=== PATIENT | female | born 1980 | race Two or more races ===

== ENCOUNTER 2018-05-04 22:51 | Emergency (ER) | payer OTHER ==
[2018-05-04] MEDS ORDERED: diphenhydrAMINE 25 MG CAPSULE PO STA (23:14)
[2018-05-04] MEDS ORDERED: predniSONE 20 MG TABLET PO STA (23:14)
[2018-05-04] MEDS ORDERED: DOXYCYCLINE 100 MG TABLET PO STA (23:14)
--- NOTE | 2018-05-04 23:18 | ED Physician Documentation ---
History of Present Illness - Stated complaint Stated Complaint: LT HAND SWELL/BLISTER - Chief complaint Chief Complaint: Ext Problem - History obtained from History obtained from: Patient, Family - History of Present Illness Timing: Today, How many hours ago (4) Pain level max: 5 Pain level now: 1 Improved by: nothing Worsened by: nothing - Additonal information Additional information: 37-year-old female presents to the emergency department with swelling and pain to the lateral aspect of the left hand. Started approximately 4 hours ago and is grown in size. She states there was a small blister which popped. Most of the pain is with movement. Does not recall any injury. States it is painful and does not itch. She is right-handed. Review of Systems Ten Systems: 10 systems reviewed and negative Constitutional: denies: Fever, Chills Nose: denies: Rhinorrhea / runny nose, Congestion Cardiac: denies: Chest pain / pressure Respiratory: denies: Cough GI: denies: Abdominal Pain, Nausea, Vomiting, Diarrhea : denies: Now EGA Musculoskeletal: denies: Neck pain, Back pain Neurologic: denies: Headache PD PAST MEDICAL HISTORY - Past Medical History Past Medical History: Yes Psych: Anxiety, ADD/ADHD - Past Surgical History Past Surgical History: Yes - Present Medications Home Medications: Ambulatory Orders Medication Instructions Recorded Confirmed Venlafaxine [Effexor] 75 mg PO DAILY 04/15/14 04/15/14 Promethazine [Phenergan] 25 - 50 mg PO Q6H PRN #10 tab 12/09/15 raNITIdine [Zantac] 150 mg PO BID #30 tablet 12/09/15 Doxycycline Hyclate 100 mg PO BID #20 capsule 05/05/18 predniSONE [Prednisone] 40 mg PO DAILY #10 tablet 05/05/18 - Allergies Allergies/Adverse Reactions: Allergies Allergy/AdvReac Type Severity Reaction Status Date / Time sulfamethoxazole Allergy Intermediate Rash Verified 04/10/13 22:44 [From Bactrim] trimethoprim [From Bactrim] Allergy Intermediate Rash Verified 04/10/13 22:44 amoxicillin [Amoxicillin] Allergy Hives Verified 04/08/13 14:28 - Social History Does the pt smoke?: Yes Smoking Status: Current every day smoker Does the pt drink ETOH?: Yes Does the pt have substance abuse?: No - Immunizations Immunizations are current?: Yes - POLST Patient has POLST: No PD ED PE NORMAL - Vitals Vital signs reviewed: Yes - General General: Alert and oriented X 3, No acute distress - HEENT HEENT: Moist mucous membranes - Neck Neck: Supple, no meningeal sign - Cardiac Cardiac: RRR - Respiratory Respiratory: No respiratory distress, Clear bilaterally - Derm Derm: Warm and dry - Neuro Neuro: Alert and oriented X 3 - Psych Psych: Normal mood, Normal affect PD ED PE EXPANDED - Extremities PAPO UE/Hands Visual: 1 - rash (2x4cm area with slight erythema and cracking of skin, no crepitus. no lymphangitis) Results - Vitals Vitals: Vital Signs - 24 hr 05/04/18 05/05/18 23:01 00:21 Temperature 36.3 C L Heart Rate 89 74 Respiratory 18 17 Rate Blood Pressure 151/103 H 116/74 O2 Saturation 99 100 Oxygen O2 Source Room air PD MEDICAL DECISION MAKING - ED course Complexity details: re-evaluated patient, considered differential, d/w patient ED course: 37-year-old female with a left hand area of erythema, this appears mostly consistent with an allergic reaction, however will cover for possible cellulitis as well. Does not appear to be necrotizing fasciitis. No evidence of deep space infection in the hand. No pain with range of motion of the fingers. No pain along the tendon sheaths. She did improve with prednisone, doxycycline and Benadryl. Neurovascularly intact. We will continue this regimen at home and see how she progresses. Patient counseled regarding signs and symptoms for which I believe and urgent re-evaluation would be necessary. Patient with good understanding of and agreement to plan and is comfortable going home at this time This document was made in part using voice recognition software. While efforts are made to proofread this document, sound alike and grammatical errors may occur. Departure - Departure Disposition: 01 Home, Self Care Clinical Impression: Cellulitis Qualifiers: Site of cellulitis: extremity Site of cellulitis of extremity: upper extremity Laterality: left Qualified Code(s): L03.114 - Cellulitis of left upper limb Allergic reaction Qualifiers: Encounter type: initial encounter Qualified Code(s): T78.40XA - Allergy, unspecified, initial encounter Condition: Good Instructions: ED Infec Skin Cellulitis Follow-Up: Edilson Hill ARNP [Primary Care Provider] - Within 3 Days Prescriptions: Doxycycline Hyclate 100 mg PO BID #20 capsule predniSONE [Prednisone] 40 mg PO DAILY #10 tablet Comments: The cause of your symptoms is unclear today. This could be related to a bacterial infection or allergic reaction. Take the medications until gone. Return if you worsen
[2018-05-05 00:22] VITALS: BP 116/74
== END 2018-05-05 00:39 | disposition home or self-care (01) ==
LOC: ED 22:51
DX: L03.114 Cellulitis of left upper limb (principal); T78.40XA Allergy, unspecified, initial encounter; F17.200 Nicotine dependence, unspecified, uncomplicated
CPT/HCPCS: 99283; A9270; J7512

== ENCOUNTER 2018-05-18 13:15 | Emergency (ER) | payer OTHER ==
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
[2018-05-18] MEDS ORDERED: CYCLOBENZAPRINE 10 MG TABLET PO STA (14:12)
[2018-05-18] MEDS ORDERED: HYDROcod/ACETAM 5/325 MG TABLET PO STA (14:12)
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
[2018-05-18 15:05] VITALS: BP 124/90
== END 2018-05-18 15:04 | disposition home or self-care (01) ==
LOC: ED 13:15
DX: S39.012A Strain of muscle, fascia and tendon of lower back, initial encounter (principal); S50.02XA Contusion of left elbow, initial encounter; V49.9XXA Car occupant (driver) (passenger) injured in unspecified traffic accident, initial encounter; Y93.84 Activity, sleeping; M54.2 Cervicalgia; R03.0 Elevated blood-pressure reading, without diagnosis of hypertension; F17.200 Nicotine dependence, unspecified, uncomplicated
CPT/HCPCS: 73080; 99283; A9270

== ENCOUNTER 2018-06-28 11:51 | Emergency (ER) | payer OTHER ==
[2018-06-28] MEDS ORDERED: SODIUM CHLORIDE 0.9% 1,000 ML IV ONE (13:55)
[2018-06-28] MEDS ORDERED: HYOSCYAMINE SL 0.125 MG TABLET SL STA (13:55)
[2018-06-28] MEDS ORDERED: ONDANSETRON 4 MG/2 ML VIAL IVP STA (13:55)
--- NOTE | 2018-06-28 13:56 | ED Physician Documentation ---
History of Present Illness - Stated complaint Stated Complaint: N/V STOMACH PX/BACK PX - Chief complaint Chief Complaint: Abd Pain - History obtained from History obtained from: Patient, Family - History of Present Illness Timing: Yesterday Pain level max: 8 Pain level now: 8 - Additonal information Additional information: 38-year-old female presents to the emergency department with nausea, vomiting, diarrhea. Ongoing for the past 24 hours or so. Having abdominal cramping as well. Unable to tolerate p.o. She is being weaned off Effexor and Vyvanse. No fevers. No bad food or recent travel.Nothing makes it better. Worse with eating and drinking Review of Systems Ten Systems: 10 systems reviewed and negative Constitutional: denies: Fever, Chills Ears: denies: Ear pain Nose: denies: Rhinorrhea / runny nose, Congestion Throat: denies: Sore throat Cardiac: denies: Chest pain / pressure Respiratory: denies: Cough GI: reports: Abdominal Pain (Cramping, especially epigastric), Nausea, Vomiting, Diarrhea : denies: Dysuria, Frequency, Hesitancy, Now EGA Skin: denies: Rash Musculoskeletal: denies: Neck pain, Back pain Neurologic: denies: Headache PD PAST MEDICAL HISTORY - Past Medical History Cardiovascular: None Respiratory: None Neuro: None Endocrine/Autoimmune: None GI: 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 : None HEENT: None Psych: Anxiety, ADD/ADHD Musculoskeletal: None Derm: None - Past Surgical History Past Surgical History: Yes - Present Medications Home Medications: Ambulatory Orders Medication Instructions Recorded Confirmed Venlafaxine [Effexor] 75 mg PO DAILY 04/15/14 05/18/18 Cyclobenzaprine [Flexeril] 10 mg PO TID PRN #20 tablet 05/18/18 Hydrocodone/Acetaminophen 1 - 2 each PO Q6H PRN #14 tablet 05/18/18 [Hydrocodon-Acetaminophen 5-325] Lisdexamfetamine Dimesylate 30 mg PO DAILY 05/18/18 05/18/18 [Vyvanse] Hyoscyamine Sulfate [Levsin-Sl] 0.125 mg SL Q6H PRN #10 tab.subl 06/28/18 Ondansetron Odt [Zofran] 4 mg TL Q6H PRN #10 tablet 06/28/18 - Allergies Allergies/Adverse Reactions: Allergies Allergy/AdvReac Type Severity Reaction Status Date / Time sulfamethoxazole Allergy Intermediate Rash Verified 06/28/18 12:19 [From Bactrim] trimethoprim [From Bactrim] Allergy Intermediate Rash Verified 06/28/18 12:19 amoxicillin [Amoxicillin] Allergy Hives Verified 06/28/18 12:19 - Living Situation Living Situation: reports: With family Living Arrangement: reports: At home - Social History Does the pt smoke?: Yes Smoking Status: Current every day smoker Does the pt drink ETOH?: Yes Does the pt have substance abuse?: Yes Substance Use and Type: Marijuana (2-3 times per month) - Family History Family history: reports: Non contributory - Immunizations Immunizations are current?: Yes - POLST Patient has POLST: No PD ED PE NORMAL - Vitals Vital signs reviewed: Yes - General General: Alert and oriented X 3, No acute distress - HEENT HEENT: Moist mucous membranes - Neck Neck: Supple, no meningeal sign - Cardiac Cardiac: RRR, Strong equal pulses - Respiratory Respiratory: No respiratory distress, Clear bilaterally - Abdomen Abdomen: Soft, Non tender, Non distended - Back Back: No CVA TTP - Derm Derm: Warm and dry, No rash - Extremities Extremities: No edema - Neuro Neuro: Alert and oriented X 3 Results - Vitals Vitals: Vital Signs - 24 hr 06/28/18 06/28/18 06/28/18 12:17 14:20 14:24 Temperature 37.1 C 37.3 C Heart Rate 96 79 79 Respiratory 14 20 14 Rate Blood Pressure 129/82 H 122/80 122/80 O2 Saturation 97 100 99 Oxygen O2 Source Room air - Labs Labs: Laboratory Tests 06/28/18 06/28/18 14:00 14:00 WBC 6.7 RBC 4.18 L Hgb 11.5 L Hct 34.7 L MCV 82.9 MCH 27.5 MCHC 33.2 RDW 14.9 Plt Count 213 MPV 8.8 Neut # (Auto) 5.4 Lymph # (Auto) 0.8 L [place] # (Auto) 0.6 Eos # (Auto) 0.0 Baso # (Auto) 0.0 Absolute Nucleated RBC 0.00 Nucleated RBC % 0.0 Sodium 133 L Potassium 3.5 Chloride 104 Carbon Dioxide 23 Anion Gap 6.0 BUN 7 Creatinine 0.4 Estimated GFR (MDRD) 178 Glucose 98 Calcium 8.4 L Total Bilirubin 0.5 AST 20 ALT 12 Alkaline Phosphatase 61 Total Protein 7.0 Albumin 3.8 Globulin 3.2 Albumin/Globulin Ratio 1.2 Lipase 26 PD MEDICAL DECISION MAKING - ED course Complexity details: reviewed results, re-evaluated patient, considered differential, d/w patient, d/w family ED course: 38-year-old female presents to the emergency department with what appears to be a viral gastroenteritis. She feels better after IV fluids, Levsin and Zofran. Tolerating p.o. without difficulty. We will continue supportive care and follow-up with her doctor. Abdomen is soft, nontender nondistended on serial exam. Patient counseled regarding signs and symptoms for which I believe and urgent re-evaluation would be necessary. Patient with good understanding of and agreement to plan and is comfortable going home at this time This document was made in part using voice recognition software. While efforts are made to proofread this document, sound alike and grammatical errors may occur. Departure - Departure Disposition: 01 Home, Self Care Clinical Impression: Gastroenteritis Condition: Good Instructions: ED Gastroenteritis Viral Follow-Up: Edilson Hill ARNP [Primary Care Provider] - Within 1 week Prescriptions: Hyoscyamine Sulfate [Levsin-Sl] 0.125 mg SL Q6H PRN #10 tab.subl PRN Reason: cramping Ondansetron Odt [Zofran] 4 mg TL Q6H PRN #10 tablet PRN Reason: Nausea / Vomiting Comments: Take the medications as needed. Return if you worsen. Follow-up with your doctor for further evaluation and care. Forms: Activity restrictions Discharge Date/Time: 06/28/18 15:50
[2018-06-28 14:09] LABS: BASOPHILS % (AUTO) 0.2 %; EOSINOPHILS % (AUTO) 0.1 %; HGB - HEMOGLOBIN 11.5 g/dL (12.0-16.0); LYMPHOCYTES # (AUTO) 0.8 10^3/uL (1.5-3.5); LYMPHOCYTES % (AUTO) 11.5 %; MEAN CORPUSCULAR HEMOGLOBIN 27.5 pg (27.0-31.0); MEAN CORPUSCULAR HGB CONC 33.2 g/dL (32.0-36.0); MEAN CORPUSCULAR VOLUME 82.9 fL (81.0-99.0); MEAN PLATELET VOLUME 8.8 fL (7.9-10.8); MONOCYTES # (AUTO) 0.6 10^3/uL (0.0-1.0); MONOCYTES % (AUTO) 8.2 %; NEUTROPHILS # (AUTO) 5.4 10^3/uL (1.5-6.6); PLT - PLATELET COUNT 213 10^3/uL (130-450); RED BLOOD COUNT 4.18 10^6/uL (4.20-5.40); RED CELL DISTRIBUTION WIDTH 14.9 % (12.0-15.0); WHITE BLOOD COUNT 6.7 x10^3/uL (4.8-10.8)
[2018-06-28 14:21] VITALS: BP 122/80
[2018-06-28 14:23] LABS: ALBUMIN 3.8 g/dL (3.2-5.5); ALBUMIN/GLOBULIN RATIO 1.2 (1.0-2.2); BILIRUBIN,TOTAL 0.5 mg/dL (0.2-1.0); CALCIUM 8.4 mg/dL (8.5-10.3); CREATININE 0.4 mg/dL (0.4-1.0)
== END 2018-06-28 15:50 | disposition home or self-care (01) ==
LOC: ED 11:51
DX: K52.9 Noninfective gastroenteritis and colitis, unspecified (principal); F17.200 Nicotine dependence, unspecified, uncomplicated
CPT/HCPCS: 36415; 80053; 83690; 85025; 96361; 96374; 99283; A9270

== ENCOUNTER 2018-10-02 20:25 | Emergency (ER) | payer OTHER ==
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
[2018-10-02] MEDS ORDERED: IBUPROFEN 800 MG TABLET PO STA (21:01)
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
[2018-10-02 22:46] VITALS: BP 142/82
== END 2018-10-02 22:44 | disposition home or self-care (01) ==
LOC: ED 20:25
DX: S90.31XA Contusion of right foot, initial encounter (principal); S20.312A Abrasion of left front wall of thorax, initial encounter; V43.54XA Car driver injured in collision with van in traffic accident, initial encounter; Y92.410 Unspecified street and highway as the place of occurrence of the external cause; F17.200 Nicotine dependence, unspecified, uncomplicated
CPT/HCPCS: 71101; 73630; 93005; 99283; A9270

== ENCOUNTER 2018-10-23 07:59 | Day surgery (SDC) | payer OTHER ==
[2018-10-23] MEDS ORDERED: BUPIVACAINE 0.25% PF 10 ML VIAL ONE (08:26)
[2018-10-23] MEDS ORDERED: LACTATED RINGERS 1,000 ML IV ONE (08:35)
[2018-10-23] MEDS ORDERED: CEFAZOLIN SODIUM IN 0.9 % NACL 2 GM/100 ML BAG IV ONE (08:41)
[2018-10-23 08:48] LABS: HCG UR QUAL NEGATIVE
--- NOTE | 2018-10-23 08:49 | ANESTHESIA ---
Pre-Anesthesia VS, & Labs - Diagnosis Left wrist carpal tunnel syndrome - Procedure Left wrist carpal tunnel release Vital Signs: Temp Pulse Resp BP Pulse Ox 36.7 C 72 16 130/90 H 100 10/23/18 08:00 10/23/18 08:00 10/23/18 08:00 10/23/18 08:00 10/23/18 08:00 Height 5 ft 3 in Weight (kg) 74.1 kg Body Mass Index 28.3 - NPO >8 hours - Is Patient ?: No Home Medications and Allergies Home Medications: Ambulatory Orders Levothyroxine Sodium [Synthroid] 50 mcg PO 10/21/18 Venlafaxine [Effexor] 75 mg PO DAILY 04/15/14 Lisdexamfetamine Dimesylate [Vyvanse] 30 mg PO DAILY 05/18/18 Levothyroxine Sodium [Synthroid] 50 mcg PO 10/21/18 Allergies/Adverse Reactions: Allergies Allergy/AdvReac Type Severity Reaction Status Date / Time sulfamethoxazole Allergy Intermediate Rash Verified 10/21/18 14:23 [From Bactrim] trimethoprim [From Bactrim] Allergy Intermediate Rash Verified 10/02/18 20:33 amoxicillin [Amoxicillin] Allergy Hives Verified 10/02/18 20:33 Anes History & Medical History - Anesthetic History Anesthesia Complications: reports: No previous complications - Medical History Cardiovascular: reports: Hypertension Pulmonary: reports: None Gastrointestinal: reports: None Urinary: reports: None Neuro: reports: None Musculoskeletal: reports: None Endocrine/Autoimmune: reports: HyPOthyroidism Blood Disorders: reports: None Skin: reports: None Smoking Status: Current every day smoker (1/2 pack per day for 20 years) Psychosocial: reports: Anxiety, Cannabis (2x per month) - Surgical History Gynecologic: Breast implants Exam General: Alert, Oriented x3, Cooperative, No acute distress Dental: WNL Mouth Openin Fingerbreadth Neck Mobility: Normal Mallampati classification: I Thyromental Distance: greater than 6 cm Respiratory: Lungs clear, Normal breath sounds, No respiratory distress, No accessory muscle use Cardiovascular: Regular rate, Normal S1, Normal S2, No murmurs Mental/Cognitive Status: Alert/Oriented X3, Normal for patient Plan Anesthesia Type: General Consent for Procedure(s) Verified and Reviewed: Yes Code Status: Attempt Resuscitation ASA classification: 2-Mild systemic disease Is this case an emergency?: No
[2018-10-23] MEDS ORDERED: BUPIVACAINE 0.25% PF 30 ML VIAL SUBQ ONE ×2 (09:37→09:48)
[2018-10-23] MEDS ORDERED: LIDOCAINE-MPF 2% 5 ML VIAL IM ONE (09:42)
[2018-10-23] MEDS ORDERED: KETOROLAC 30 MG/ML VIAL IVP ONE (09:42)
[2018-10-23] MEDS ORDERED: DEXAMETHASONE 4 MG/ML VIAL IVP ONE (09:42)
[2018-10-23] MEDS ORDERED: HYDROmorphone 1 MG/ML SYRINGE IM ONE (09:42)
[2018-10-23] MEDS ORDERED: fentaNYL 100 MCG/2 ML VIAL IVP ONE (09:42)
[2018-10-23] MEDS ORDERED: PROPOFOL 200 MG/20 ML VIAL IVP ONE (09:42)
[2018-10-23] MEDS ORDERED: MIDAZOLAM 2 MG/2 ML VIAL IVP ONE (09:42)
[2018-10-23] MEDS ORDERED: ONDANSETRON 4 MG/2 ML VIAL IVP ONE (09:42)
[2018-10-23] MEDS ORDERED: oxyCODONE 5 MG TABLET PO PRN (10:02)
[2018-10-23] MEDS ORDERED: ONDANSETRON 4 MG/2 ML VIAL IVP PRN (10:02)
--- NOTE | 2018-10-23 10:05 | OPERATIVE REPORT ---
Operative Report - Other Other Information/Narrative: Date of Surgery: 23 October 2018 Pre-Op Diagnosis: Left carpal tunnel syndrome Procedure: Left open carpal tunnel release Postop Diagnosis: Left carpal tunnel syndrome Primary Surgeon: Seymour Mitchell Secondary Surgeon: None Complications: None Tourniquet Time: 10 minutes EBL: 2 cc Indication For Surgery: 38-year-old female with bilateral carpal tunnel syndrome that has been electrodiagnostic we confirmed and is symptomatic. She failed nonoperative treatment and desired surgical management.. The risks, benefits, and alternatives were discussed. Risks include pain, bleeding, infection, damage to nearby structures, numbness, pillar pain, lack of symptom relief, need for further surgery, DVT, PE, stroke, and . Written consent was obtained. The patient was met in the preoperative holding on the day of the procedure. Operative extremity was signed. Consent was verified. They desire to proceed. They were brought to the operating room and placed in the supine position. A well-padded forearm tourniquet was applied. They were prepped and draped in the standard fashion. A surgical timeout was held will be confirmed the patient procedure, identity, allergies, antibiotics, images and laterality. All were in agreement we proceeded. An Esmarch was used to exsanguinate the limb and the tourniquet was elevated to 250 mmHg. A 3cm longitudinal incision was made in line with the ulnar border of the ring finger starting at Rangel's Cardinal line distally. This was just radial to the hook of the hamate. Bipolar electrocautery was used at the skin edge. Sharp dissection was brought down through the palmar fascia. Retractors were placed. The transverse carpal ligament was identified and a knife was used to separate it. The contents of the carpal tunnel were seen. Knife dissection was used to release the ligament as far proximal as could be visualized. Long handled Metzenbaum scissors were then used to create a pocket just superficial to the transverse carpal ligament and a retractor was placed. I then used a long handled Metzenbaum with the tips pointed ulnarly to complete the release 2 cm into the antebrachial fascia. Retractors were then moved distally and I confirmed complete release in the appearance of fat in the palm. A freer elevator was used to confirm complete release both proximally and distally. The wound was packed with a moist gauze and the tourniquet was deflated. After holding for 3 minutes the gauze was removed and bleeding was coming from the skin edge. Bleeding was controlled with bipolar electrocautery. The wound was closed with 3-0 nylon in a horizontal mattress configuration. 2 cc of local anesthetic was placed. A sterile bulky dressing was applied. The patient was awakened and transferred to the recovery room.
[2018-10-23] MEDS ORDERED: oxyCODONE 5 MG TABLET ONE (11:07)
[2018-10-23 11:28] VITALS: BP 134/91
== END 2018-10-23 08:00 | disposition home or self-care (01) ==
LOC: SDS 07:59
PROVIDERS: ATTEND Orthopaedic Surgery
PROC: 01N50ZZ Release Median Nerve, Open Approach (ICD-10-PCS; principal; 2018-10-23 09:00)
DX: G56.03 Carpal tunnel syndrome, bilateral upper limbs (principal); I10 Essential (primary) hypertension; F17.210 Nicotine dependence, cigarettes, uncomplicated
CPT/HCPCS: 64721; 81025; A9270; J0690; J1170; J7120

== ENCOUNTER 2019-06-23 18:52 | Emergency (ER) | payer OTHER ==
[2019-06-23 19:00] VITALS: BP 145/75
== END 2019-06-23 19:17 | disposition left against medical advice (07) ==
LOC: ED 18:52
DX: Z53.21 Procedure and treatment not carried out due to patient leaving prior to being seen by health care provider (principal)

== ENCOUNTER 2019-10-27 12:52 | Outpatient (CLI) | payer OTHER ==
--- NOTE | 2019-10-27 16:21 | MRI Report ---
PROCEDURE: Brain W/O INDICATIONS: HEADACE,VISION LOSS TECHNIQUE: Noncontrast axial T1 spin echo, axial T2 fast spin echo, sagittal and axial FLAIR, coronal T2 fast sp in echo, axial gradient echo, axial diffusion and ADC through the brain. COMPARISON: None. FINDINGS: Image quality: Excellent. CSF Spaces: Basal cisterns are patent. No extra-axial fluid collections. Ventricles are normal in size and shape. Brain: No intracranial masses or hemorrhage. Soares/white matter interface is normal. Brainstem appe ars normal. Diffusion-weighted images demonstrate no acute ischemic insult. No chronic ischemic ins ults. Normal intravascular flow voids are present. Skull and face: Calvarium has normal marrow signal. Orbits appear normal. Sinuses: Sinuses and mastoids are clear. IMPRESSION: Negative brain MRI. No explanation for headache, nor vision loss. No recent infarct. Reviewed by: Kenna Serrano MD on 10/27/2019 4:20 PM PDT Approved by: Kenna Serrano MD on 10/27/2019 4:20 PM PDT Station ID: [id number]
== END 2019-10-27 12:53 | disposition home or self-care (01) ==
LOC: DI 12:52
PROVIDERS: ATTEND Family Medicine
DX: R51 Headache (principal); R55 Syncope and collapse; R11.0 Nausea; H54.7 Unspecified visual loss; R42 Dizziness and giddiness
CPT/HCPCS: 70551

== ENCOUNTER 2019-11-11 08:07 | Outpatient (CLI) | payer OTHER | END 2019-11-11 08:08 | disposition home or self-care (01) | LOC: DI 08:07 | PROVIDERS: ATTEND Family Medicine | DX: R00.0 Tachycardia, unspecified (principal); R55 Syncope and collapse | CPT/HCPCS: 93306 ==

== ENCOUNTER 2019-12-12 17:56 | Emergency (ER) | payer OTHER ==
--- NOTE | 2019-12-12 18:16 | ED Physician Documentation ---
History of Present Illness - Stated complaint Stated Complaint: COVID TEST - Chief complaint Chief Complaint: General - History obtained from History obtained from: Patient, Police - History of Present Illness Timing: Today Pain level max: 0 Pain level now: 0 - Additonal information Additional information: Patient is asymptomatic. She was brought in by [facility] from the [facility] for a COVID swab. No symptoms. She was in contact with someone who tested positive. 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 : None HEENT: None Psych: Anxiety, ADD/ADHD Musculoskeletal: None Derm: None - Past Surgical History Past Surgical History: Yes - Present Medications Home Medications: Ambulatory Orders Medication Instructions Recorded Confirmed Venlafaxine [Effexor] 75 mg PO DAILY 04/15/14 05/18/18 Lisdexamfetamine Dimesylate 30 mg PO DAILY 05/18/18 05/18/18 [Vyvanse] Levothyroxine Sodium [Synthroid] 50 mcg PO 10/21/18 - Allergies Allergies/Adverse Reactions: Allergies Allergy/AdvReac Type Severity Reaction Status Date / Time sulfamethoxazole Allergy Intermediate Rash Verified 06/23/19 18:57 [From Bactrim] trimethoprim [From Bactrim] Allergy Intermediate Rash Verified 06/23/19 18:57 amoxicillin [Amoxicillin] Allergy Hives Verified 06/23/19 18:57 - Social History Does the pt smoke?: Yes Smoking Status: Current every day smoker (1/2 pack per day for 20 years) Does the pt drink ETOH?: Yes Does the pt have substance abuse?: Yes - Immunizations Immunizations are current?: Yes - POLST Patient has POLST: No PD ED PE NORMAL - Vitals Vital signs reviewed: Yes - General General: Alert and oriented X 3, No acute distress - HEENT HEENT: Moist mucous membranes - Neck Neck: Supple, no meningeal sign - Respiratory Respiratory: No respiratory distress - Derm Derm: Warm and dry - Neuro Neuro: Alert and oriented X 3 Results - Vitals Vitals: Vital Signs - 24 hr 12/12/19 18:03 Temperature 36.8 C Heart Rate 84 Respiratory 16 Rate Blood Pressure 149/92 H O2 Saturation 100 Oxygen O2 Source Room air PD MEDICAL DECISION MAKING - ED course Complexity details: considered differential, d/w patient ED course: Covid test sent. It will be followed up in 2 to 3 days by her doctor at the intermediate. Patient is asymptomatic. This document was made in part using voice recognition software. While efforts are made to proofread this document, sound alike and grammatical errors may occur. Departure - Departure Disposition: 01 Home, Self Care Clinical Impression: Encounter for screening laboratory testing for COVID-19 virus Condition: Good Follow-Up: DEL HANCOCK ARNP [Physician No Access] - Within 3 Days Comments: Your COVID testing was sent today. It may take up to 2 to 3 days to return.
[2019-12-12 18:19] VITALS: BP 148/90
== END 2019-12-12 18:25 | disposition home or self-care (01) ==
LOC: ED 17:56
DX: U07.1 COVID-19 (principal); F17.200 Nicotine dependence, unspecified, uncomplicated
CPT/HCPCS: 99281; 99283

== ENCOUNTER 2019-12-15 13:44 | Outpatient (CLI) | payer OTHER | END 2019-12-15 13:45 | disposition home or self-care (01) | LOC: COV 13:44 | PROVIDERS: ATTEND Registered Nurse | DX: Z20.828 Contact with and (suspected) exposure to other viral communicable diseases (principal) ==

== ENCOUNTER 2023-05-30 13:16 | Outpatient (CLI) | payer OTHER ==
--- NOTE | 2023-05-30 15:54 | Mammography Report ---
BILATERAL DIGITAL SCREENING MAMMOGRAM 3D/2D WITH AUGMENTATION: 05/30/2023 CLINICAL: Baseline exam. Routine screening. Family history of breast cancer. No prior exams were available for comparison. Both breasts are heterogeneously dense, which may obscure small masses (category c / 51-75% glandular tissue). There is a cluster of focal asymmetries in the right breast at 11 o'clock posterior depth. No other significant masses, calcifications, or other findings are seen in either breast. IMPRESSION: INCOMPLETE: NEEDS ADDITIONAL IMAGING EVALUATION The cluster of focal asymmetries in the right breast is indeterminate. Additional views with possibl e ultrasound are recommended. Consider also future supplemental MRI screening. Based on Tyrer-Cuzick model (a risk assessment model), the patient's lifetime risk is 24.6% and her 1 0 year risk is 4.4%. If a patient has an elevated risk, a more comprehensive evaluation should be con sidered and/or a referral to a genetic counselor. The [place] [employer], [place] [employer], and NCCN Guidelines advise the consideration of Breast MRI as an adjunct to screening mammog valdo in patients whose "Lifetime risk to develop breast cancer" is 20% or higher. This exam was interpreted at Station ID: [id number]. NOTE: For mammograms, a report in lay terms will be sent to the patient. Approximately 15% of breast malignancies will not be visualized mammographically. In the management of a palpable breast mass, a negative mammogram must not discourage biopsy of a clinically suspicious lesion. Electronically Signed By: Kelton Phillips M.D. lc/:05/30/2023 14:04:24 ACR BI-RADS Category 0: Incomplete 3340F PARENCHYMAL PATTERN: (D) - The breast(s) demonstrate(s) heterogeneously dense fibroglandular parenchy ma. BI-RADS CATEGORY: (0) - 0 Mammo and [place] [id number] Immediate follow-up LATERALITY: (B)
== END 2023-05-30 13:17 | disposition home or self-care (01) ==
LOC: DI.N 13:16
PROVIDERS: ATTEND Obstetrics & Gynecology
DX: Z12.31 Encounter for screening mammogram for malignant neoplasm of breast (principal); Z80.3 Family history of malignant neoplasm of breast; R92.333 Mammographic heterogeneous density, bilateral breasts; R92.8 Other abnormal and inconclusive findings on diagnostic imaging of breast

== ENCOUNTER 2023-06-04 13:51 | Emergency (ER) | payer OTHER ==
[2023-06-04 14:10] VITALS: BP 160/98; O2SAT 97
--- NOTE | 2023-06-04 14:22 | ED Physician Documentation ---
PD HPI UPPER EXT INJURY - Stated complaint Stated Complaint: RT HAND FINGER LAC - Chief complaint Chief Complaint: Laceration - History obtained from History obtained from: Patient - History of Present Illness Location: Right, Finger (4th) Pain level max: 0 Pain level now: 0 Improved by: Rest Worsened by: Moving Contributing factors: No: Anticoagulated - Additonal information Additional information: 42-year-old female was doing dishes today when she reached into the sink and cut herself on a knife. Laceration is on the right fourth digit. Unknown last tetanus shot. No numbness or tingling. Not on blood thinners. 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 : None HEENT: None Psych: Anxiety, ADD/ADHD Musculoskeletal: None Derm: None - Past Surgical History Past Surgical History: Yes Ortho: Carpal Tunnel surgery - Present Medications Home Medications: Ambulatory Orders Medication Instructions Recorded Confirmed Levothyroxine Sodium [Synthroid] 75 mcg PO DAILY 10/21/18 06/04/23 Buspirone HCl 10 mg PO BID 06/03/23 06/04/23 Escitalopram Oxalate [Lexapro] 20 mg PO DAILY 06/03/23 06/04/23 Ferrous Gluconate 324 mg PO DAILY 06/03/23 06/04/23 Norethindrone-E.estradiol-Iron 1 each PO DAILY 06/04/23 06/04/23 [Geno 24 Fe 1 mg-20 Mcg Tablet] - Allergies Allergies/Adverse Reactions: Allergies Allergy/AdvReac Type Severity Reaction Status Date / Time sulfamethoxazole Allergy Intermediate georgina/carmela Verified 06/04/23 13:59 [From Bactrim] syndrome trimethoprim [From Bactrim] Allergy Intermediate Rash Verified 06/04/23 13:59 amoxicillin [Amoxicillin] Allergy Hives Verified 06/04/23 13:59 - Social History Does the pt smoke?: No Smoking Status: Never smoker Does the pt drink ETOH?: Yes Does the pt have substance abuse?: No - Immunizations Immunizations are current?: Yes - POLST Patient has POLST: No PD ED PE NORMAL - Vitals Vital signs reviewed: Yes - General General: Alert and oriented X 3, No acute distress - HEENT HEENT: Moist mucous membranes - Derm Derm: Warm and dry - Extremities Extremities: Other (R 4th digit - 3 cm linear laceration over the mid phalanx, ulnar aspect Neurovascular intact. No tendon injury.) Results - Vitals Vitals: Vital Signs - 24 hr 06/04/23 13:56 Temperature 36.5 C Heart Rate 80 Respiratory 15 Rate Blood Pressure 160/98 H O2 Saturation 97 Oxygen O2 Source Room air Procedures - Laceration (location) R 4th digit Length in cm: 3 Wound type: Linear, Into subcut fat, Clean Neurovascular status: Sensory intact, Motor intact, Vascular intact Tendon involvement: Tendon intact Wound preparation: Irrigated copiously NS, Wound explored, To the base Skin layer closure: Dermabond (T ring closure) Other: Patient tolerated well, No complications, Neurovascular intact, Tetanus booster given PD Medical Decision Making - ED course Complexity details: considered differential, d/w patient ED course: Laceration repaired with the T ring closure system. Tolerated well. No complications. We did discuss various options and patient elects the closure system. We discussed sutures, glue, bandaging. Warnings of infection and instructions on wound care given at bedside. Also counseled on how to minimize scarring. Tdap given patient counseled regarding signs and symptoms for which I believe and urgent re-evaluation would be necessary. Patient with good understanding of and agreement to plan and is comfortable going home at this time This document was made in part using voice recognition software. While efforts are made to proofread this document, sound alike and grammatical errors may occur. Departure - Departure Disposition: 01 Home, Self Care Clinical Impression: Finger laceration Qualifiers: Encounter type: initial encounter Finger: ring finger Damage to nail status: without damage Foreign body presence: without foreign body Laterality: right Qualified Code(s): S61.214A - Laceration without foreign body of right ring finger without damage to nail, initial encounter Condition: Good Instructions: ED Laceration Hand Follow-Up: SHAE MCLEAN MD [Primary Care Provider] - Within 1 week Comments: Please follow-up with your doctor as needed for any further care. Do not apply any ointment as this will dissolve the glue. The whole dressing should fall off of your finger in about a week. Return if you notice redness, swelling or drainage from the wound. You were given a tetanus shot today. Forms: PCP List Discharge Date/Time: 06/04/23 15:09
[2023-06-04] MEDS: TETANUS/DIPHTHERIA/PERTUSSIS 0.5 ML SYRINGE IM ONE (14:32)
== END 2023-06-04 15:09 | disposition home or self-care (01) ==
LOC: ED 13:51
DX: S61.214A Laceration without foreign body of right ring finger without damage to nail, initial encounter (principal); W26.0XXA Contact with knife, initial encounter; Y93.G1 Activity, food preparation and clean up; Z23 Encounter for immunization
CPT/HCPCS: 12002; 90471; 99282

== ENCOUNTER 2023-06-06 06:19 | Day surgery (SDC) | payer OTHER ==
[2023-06-06] MEDS: LACTATED RINGERS 1,000 ML IV ONE (06:40)
[2023-06-06 06:49] LABS: HCG UR QUAL NEGATIVE
[2023-06-06 07:04] LABS: BASOPHILS % (AUTO) 0.4 %; EOSINOPHILS # (AUTO) 0.1 10^3/uL (0.0-0.7); EOSINOPHILS % (AUTO) 2.5 %; HCT - HEMATOCRIT 36.7 % (37.0-47.0); HGB - HEMOGLOBIN 11.4 g/dL (12.0-16.0); LYMPHOCYTES # (AUTO) 1.2 10^3/uL (1.5-3.5); LYMPHOCYTES % (AUTO) 21.7 %; MEAN CORPUSCULAR HEMOGLOBIN 27.3 pg (27.0-31.0); MEAN CORPUSCULAR HGB CONC 31.1 g/dL (32.0-36.0); MEAN PLATELET VOLUME 10.9 fL (7.9-10.8); MONOCYTES # (AUTO) 0.6 10^3/uL (0.0-1.0); MONOCYTES % (AUTO) 9.9 %; NEUTROPHILS # (AUTO) 3.7 10^3/uL (1.5-6.6); NEUTROPHILS % (AUTO) 65.1 %; PLT - PLATELET COUNT 268 10^3/uL (130-450); RED BLOOD COUNT 4.17 10^6/uL (4.20-5.40); RED CELL DISTRIBUTION WIDTH 15.1 % (12.0-15.0); WHITE BLOOD COUNT 5.7 x10^3/uL (4.8-10.8)
[2023-06-06] MEDS ORDERED: PROPOFOL 200 MG/20 ML VIAL IVP ONE (07:08)
[2023-06-06] MEDS ORDERED: MIDAZOLAM 2 MG/2 ML VIAL ONE (07:08)
[2023-06-06] MEDS ORDERED: LIDOCAINE-PF 2% 10 ML AMP SUBQ ONE (07:08)
[2023-06-06] MEDS ORDERED: fentaNYL 100 MCG/2 ML VIAL ONE (07:08)
--- NOTE | 2023-06-06 07:18 | ANESTHESIA ---
Pre-Anesthesia VS, & Labs - Diagnosis ENDOMETRIAL POLYP - Procedure D/C Vital Signs: Temp Pulse Resp BP Pulse Ox O2 Flow Rate 36.7 C 75 16 138/83 H 99 06/06/23 06:45 06/06/23 06:45 06/06/23 06:45 06/06/23 06:45 06/06/23 06:45 Height: 5 ft 3 in Weight (kg): 92.4 kg Body Mass Index: 36.1 BMI Classification: Obese - Is Patient ?: No - Lab Results Current Lab Results: Laboratory Tests 06/06/23 06:50: WBC 5.7, RBC 4.17 L, Hgb 11.4 L, Hct 36.7 L, MCV 88.0, MCH 27.3, MCHC 31.1 L, RDW 15.1 H, Plt Count 268, MPV 10.9 H, Neut # (Auto) 3.7, Lymph # (Auto) 1.2 L, [place] # (Auto) 0.6, Eos # (Auto) 0.1, Baso # (Auto) 0.0, Absolute Nucleated RBC 0.00, Nucleated RBC % 0.0 Fish Bones: 06/06/23 06:50 Home Medications and Allergies Home Medications: Ambulatory Orders Buspirone HCl 10 mg PO BID 06/03/23 Escitalopram Oxalate [Lexapro] 20 mg PO DAILY 06/03/23 Ferrous Gluconate 324 mg PO DAILY 06/03/23 Levothyroxine Sodium [Synthroid] 75 mcg PO DAILY 10/21/18 Buspirone HCl 10 mg PO BID 06/03/23 Escitalopram Oxalate [Lexapro] 20 mg PO DAILY 06/03/23 Ferrous Gluconate 324 mg PO DAILY 06/03/23 Norethindrone-E.estradiol-Iron [Geno 24 Fe 1 mg-20 Mcg Tablet] 1 each PO DAILY 06/04/23 Allergies/Adverse Reactions: Allergies Allergy/AdvReac Type Severity Reaction Status Date / Time sulfamethoxazole Allergy Intermediate georgina/carmela Verified 06/04/23 13:59 [From Bactrim] syndrome trimethoprim [From Bactrim] Allergy Intermediate Rash Verified 06/04/23 13:59 amoxicillin [Amoxicillin] Allergy Hives Verified 06/04/23 13:59 Anes History & Medical History - Anesthetic History Anesthesia Complications: reports: No previous complications Family history of Anesthesia Complications: Denies Family history of Malignant Hyperthermia: Denies - Medical History Cardiovascular: reports: None Pulmonary: reports: None Gastrointestinal: reports: None Urinary: reports: None Neuro: reports: None Musculoskeletal: reports: None Endocrine/Autoimmune: reports: None Blood Disorders: reports: None Skin: reports: None Smoking Status: Current every day smoker (VAPES) Psychosocial: reports: No issues indicated (OCCASIONAL) - Surgical History Gynecologic: reports: Breast implants Orthopedic: reports: Carpal Tunnel surgery Results - EKG Results EKG Comparison: Reviewed EKG Exam General: Alert Dental: WNL Mouth Openin Fingerbreadth Neck Mobility: Normal Mallampati classification: II Thyromental Distance: 4-6 cm Respiratory: Lungs clear Cardiovascular: Regular rate Plan Anesthesia Type: General Consent for Procedure(s) Verified and Reviewed: Yes Code Status: Attempt Resuscitation ASA classification: 2-Mild systemic disease Is this case an emergency?: No
[2023-06-06] MEDS ORDERED: HYDROmorphone 0.5 MG/0.5 ML SYRINGE IVP PRN (07:19)
[2023-06-06] MEDS ORDERED: NALOXONE 0.4 MG/ML VIAL IVP PRN (07:19)
[2023-06-06] MEDS ORDERED: ATROPINE ABBOJECT 1 MG/10 ML SYRINGE IVP PRN (07:19)
[2023-06-06] MEDS ORDERED: ePHEDrine 50 MG/ML VIAL IVP PRN (07:19)
[2023-06-06] MEDS ORDERED: fentaNYL 100 MCG/2 ML VIAL IVP PRN (07:19)
[2023-06-06] MEDS ORDERED: MORPHINE 2 MG/ML CARPUJECT IVP PRN (07:19)
[2023-06-06] MEDS ORDERED: METOCLOPRAMIDE 10 MG/2 ML VIAL IVP PRN (07:19)
[2023-06-06] MEDS ORDERED: ONDANSETRON 4 MG/2 ML VIAL IVP PRN (07:19)
[2023-06-06] MEDS ORDERED: LIDOCAINE 1%-EPI 1:100000 20 ML MDV ONE (07:42)
[2023-06-06] MEDS ORDERED: ONDANSETRON 4 MG/2 ML VIAL ONE (07:47)
[2023-06-06] MEDS ORDERED: DEXAMETHASONE 4 MG/ML VIAL ONE (07:47)
[2023-06-06] MEDS ORDERED: LACTATED RINGERS 1,000 ML IV SCH (08:00)
[2023-06-06] MEDS ORDERED: HYDROcod/ACETAM 10 MG/325 MG TABLET PO PRN (08:11)
[2023-06-06] MEDS: LACTATED RINGERS 500 ML IV ONE ×2 (08:15→08:36)
--- NOTE | 2023-06-06 08:16 | OPERATIVE REPORT ---
Operative Report - General Procedure Date: 06/06/23 Planned Procedure: Hysteroscopy, D&C, polypectomy Pre-Op Diagnosis: Thickened endometrium, endometrial polyp Procedure Performed: Hysteroscopy, D&C, polypectomy Post Op Diagnosis: Thickened endometrium, endometrial polyp - Procedure Note Primary Surgeon: Vaughn Delong MD Anesthesia Provider: Andreas Yang CRNA Anesthesia Technique: Other (General) Pathology: Endometrial polyp Estimated Blood Loss (mL): 30 Urine Output (mL): 0 (Voided prior to procedure) Findings: Normal-appearing endometrium other than a uterine polyp in the anterior segment taken on most of the top of the uterus. Complications: None - Other Other Information/Narrative: Patient was taken to the procedure room and placed in dorsal lithotomy position. Hibiclens was used to clean the operative area. [place] speculum was palced in the vagina and the cervix was visualized. The anterior lip the cervix was grasped with a single-tooth tenaculum. The cervix was non-stenotic and allowed the easy passage of dilators and the 6 eventually dilated to 8 mm.. Hysteroscope was then used to hydrodilate using normal saline distention media. Hysteroscope was advanced without difficulty using hydrodistention. Cervical canal was noted to have no abnormalities. Upon entry into the internal cervical os there was noted to be proliferative endometrium within the uterus. There was a large polyp in the anterior segment of the uterus on a stalk. Using the MyoSure device, this was resected until even with the endometrial tissue. Several areas of the endometrium were then sampled. Bilateral tubal ostia were noted. Hysteroscope was then removed. Patient has small amount of bleeding from the uterus, but no heavy bleeding. Tenaculum was then removed from the cervix noted to be hemostatic. All instruments removed from the vagina. Patient was taken to the PACU in good condition. Fluid deficit 15 mL.
[2023-06-06] MEDS: LIDOCAINE 1%-EPI 1:100000 20 ML MDV SUBQ ONE (08:25)
[2023-06-06 08:37] VITALS: O2SAT 100
[2023-06-06 08:57] VITALS: BP 150/97
--- NOTE | 2023-06-06 16:21 | ANESTHESIA POST OP EVALUATION ---
Anesthesia Post Eval - Post Anesthesia Eval Vitals: Last Vital Signs Temp 36.3 C L 06/06/23 08:52 Pulse 73 06/06/23 08:52 Resp 16 06/06/23 08:52 BP 150/97 H 06/06/23 08:52 Pulse Ox 100 06/06/23 08:52 O2 Flow Rate CV Function Including HR & BP: Stable Pain Control: Satisfactory Nausea & Vomiting: Negative Mental Status: Baseline Respiratory Status: Airway Patent Hydration Status: Satisfactory Anesthesia Complications: None
== END 2023-06-06 06:20 | disposition home or self-care (01) ==
LOC: SDS 06:19
PROVIDERS: ATTEND Obstetrics & Gynecology
PROC: 0UB98ZZ Excision of Uterus, Via Natural or Artificial Opening Endoscopic (ICD-10-PCS; principal; 2023-06-06 07:30)
DX: N84.0 Polyp of corpus uteri (principal); N93.9 Abnormal uterine and vaginal bleeding, unspecified; E66.9 Obesity, unspecified; Z68.36 Body mass index [BMI] 36.0-36.9, adult; F17.290 Nicotine dependence, other tobacco product, uncomplicated
CPT/HCPCS: 36415; 58558; 81025; 85025; J7120

== ENCOUNTER 2023-06-25 10:42 | Outpatient (CLI) | payer OTHER ==
--- NOTE | 2023-06-26 09:42 | Mammography Report ---
UNILATERAL RIGHT DIGITAL DIAGNOSTIC MAMMOGRAM 3D/2D WITH SPOT COMPRESSION WITH AUGMENTATION: CLINICAL: Patient returns today to evaluate a focal asymmetry in the right breast. Comparison is made to exam dated: 05/30/2023 mammogram - [facility]. The right breast is heterogeneously dense, which may obscure small masses (category c / 51-75% glandu lar tissue). Right retropectoral saline implant is intact. There is a cluster of oval focal asymmetries with a circumscribed margin in the right breast at 10 o' clock posterior depth. This is seen in additional views. No other significant masses or calcifications are seen in the breast. IMPRESSION: INCOMPLETE: NEEDS ADDITIONAL IMAGING EVALUATION The cluster of oval focal asymmetries in the right breast resembles a lymph node and is indeterminate . An ultrasound is recommended. Based on Tyrer-Cuzick model (a risk assessment model), the patient's lifetime risk is 25.7% and her 1 0 year risk is 4.9%. If a patient has an elevated risk, a more comprehensive evaluation should be con sidered and/or a referral to a genetic counselor. The [place] [employer], [employer], and NCCN Guidelines advise the consideration of Breast MRI as an adjunct to screening mammog valdo in patients whose "Lifetime risk to develop breast cancer" is 20% or higher. This exam was interpreted at Station ID: [id number]. NOTE: For mammograms, a report in lay terms will be sent to the patient. Approximately 15% of breast malignancies will not be visualized mammographically. In the management of a palpable breast mass, a negative mammogram must not discourage biopsy of a clinically suspicious lesion. Electronically Signed By: Jose M molina/aishwarya:06/25/2023 11:42:17 ACR BI-RADS Category 0: Incomplete 3340F PARENCHYMAL PATTERN: (D) - The breast(s) demonstrate(s) heterogeneously dense fibroglandular parchristianne henry. BI-RADS CATEGORY: (0) - 0 Ultrasound [id number] Immediate follow-up LATERALITY: (R)
--- NOTE | 2023-06-26 09:43 | Ultrasound Report ---
LIMITED ULTRASOUND OF RIGHT BREAST: 06/25/2023 CLINICAL: Patient returns today to evaluate a focal asymmetry in the right breast. Comparison is made to exams dated: 06/25/2023 mammogram and 05/30/2023 mammogram - [facility]. Color flow, real-time, and continuous wave Doppler ultrasound of the right breast 10 o'clock region w ere performed. There are multiple benign oval normal lymph nodes in the right breast posterior depth. These correla te with mammography findings. Color flow imaging demonstrates that there is vascularity present. IMPRESSION: BENIGN There is no sonographic evidence of malignancy. The multiple oval normal lymph nodes in the right breast are benign. Return to annual mammogram screening schedule is recommended. This exam was interpreted at Station ID: [id number]. Electronically Signed By: Jose M molina/aishwarya:06/25/2023 11:44:05 Ultrasound BI-RADS: 2 Benign BI-RADS CATEGORY: (2) - 2 Mammogram [id number] return to screening LATERALITY: (B)
== END 2023-06-25 10:43 | disposition home or self-care (01) ==
LOC: DI 10:42
PROVIDERS: ATTEND Obstetrics & Gynecology
DX: R92.8 Other abnormal and inconclusive findings on diagnostic imaging of breast (principal); R92.331 Mammographic heterogeneous density, right breast

== ENCOUNTER 2023-11-18 14:15 | Outpatient (CLI) | payer OTHER ==
[2023-11-18 14:39] LABS: BASOPHILS % (AUTO) 0.3 %; EOSINOPHILS # (AUTO) 0.1 10^3/uL (0.0-0.7); EOSINOPHILS % (AUTO) 1.8 %; HCT - HEMATOCRIT 34.6 % (37.0-47.0); HGB - HEMOGLOBIN 10.5 g/dL (12.0-16.0); LYMPHOCYTES # (AUTO) 1.6 10^3/uL (1.5-3.5); LYMPHOCYTES % (AUTO) 23.6 %; MEAN CORPUSCULAR HEMOGLOBIN 25.9 pg (27.0-31.0); MEAN CORPUSCULAR HGB CONC 30.3 g/dL (32.0-36.0); MEAN CORPUSCULAR VOLUME 85.2 fL (81.0-99.0); MEAN PLATELET VOLUME 10.2 fL (7.9-10.8); MONOCYTES # (AUTO) 0.6 10^3/uL (0.0-1.0); MONOCYTES % (AUTO) 8.3 %; NEUTROPHILS # (AUTO) 4.4 10^3/uL (1.5-6.6); NEUTROPHILS % (AUTO) 65.9 %; PLT - PLATELET COUNT 334 10^3/uL (130-450); RED BLOOD COUNT 4.06 10^6/uL (4.20-5.40); RED CELL DISTRIBUTION WIDTH 18.9 % (12.0-15.0); WHITE BLOOD COUNT 6.7 x10^3/uL (4.8-10.8)
== END 2023-11-18 14:16 | disposition home or self-care (01) ==
LOC: LAB 14:15
PROVIDERS: ATTEND Obstetrics & Gynecology
DX: Z01.812 Encounter for preprocedural laboratory examination (principal); N93.9 Abnormal uterine and vaginal bleeding, unspecified
CPT/HCPCS: 36415; 85025

== ENCOUNTER 2023-11-19 10:49 | Day surgery (SDC) | payer OTHER ==
[~2023-11-19 10:49] MED LIST: BUPIVACAINE 0.25% PF 30 ML VIAL ONE
[2023-11-19] MEDS: LACTATED RINGERS 1,000 ML IV ONE ×2 (11:03→14:38)
[2023-11-19 11:12] LABS: HCG UR QUAL NEGATIVE
--- NOTE | 2023-11-19 12:31 | ANESTHESIA ---
Pre-Anesthesia VS, & Labs - Diagnosis ABNORMAL UTERINE BLEEDING - Procedure HYSTEROSCOPY, ENDOMETRIAL ABLATION Vital Signs: Temp Pulse Resp BP Pulse Ox O2 Flow Rate 36.6 C 73 18 133/86 H 100 11/19/23 11:09 11/19/23 11:09 11/19/23 11:09 11/19/23 11:09 11/19/23 11:09 Height: 5 ft 3 in Weight (kg): 92.5 kg Body Mass Index: 36.1 BMI Classification: Obese - NPO >8 hours - Is Patient ?: No Home Medications and Allergies Home Medications: Ambulatory Orders Lisdexamfetamine Dimesylate [Vyvanse] 30 mg PO DAILY 11/12/23 Levothyroxine Sodium [Synthroid] 75 mcg PO DAILY 10/21/18 Escitalopram Oxalate [Lexapro] 20 mg PO DAILY 06/03/23 Lisdexamfetamine Dimesylate [Vyvanse] 30 mg PO DAILY 11/12/23 Allergies/Adverse Reactions: Allergies Allergy/AdvReac Type Severity Reaction Status Date / Time sulfamethoxazole Allergy Intermediate georgina/carmela Verified 06/04/23 13:59 [From Bactrim] syndrome trimethoprim [From Bactrim] Allergy Intermediate Rash Verified 06/04/23 13:59 amoxicillin [Amoxicillin] Allergy Hives Verified 06/04/23 13:59 Anes History & Medical History - Anesthetic History Anesthesia Complications: reports: No previous complications Family history of Anesthesia Complications: Denies Family history of Malignant Hyperthermia: Denies - Medical History Cardiovascular: reports: None Pulmonary: reports: None Gastrointestinal: reports: None Urinary: reports: None Neuro: reports: None Musculoskeletal: reports: None Endocrine/Autoimmune: reports: HyPOthyroidism Blood Disorders: reports: None Skin: reports: None Smoking Status: Current every day smoker (VAPE EVERYDAY) Psychosocial: reports: No issues indicated History of Cancer?: No - Surgical History Gynecologic: reports: Breast implants Orthopedic: reports: Carpal Tunnel surgery Results - EKG Results EKG Comparison: Reviewed EKG, Normal EKG Exam General: Alert, Oriented x3, Cooperative, No acute distress Dental: WNL Mouth Openin Fingerbreadth Neck Mobility: Normal Mallampati classification: I Thyromental Distance: 4-6 cm Respiratory: Lungs clear, Normal breath sounds, No respiratory distress, No accessory muscle use Cardiovascular: Regular rate, Normal S1, Normal S2, No murmurs Mental/Cognitive Status: Alert/Oriented X3, Normal for patient Cognitive Status: Within normal limits Plan Anesthesia Type: General Consent for Procedure(s) Verified and Reviewed: Yes Code Status: Attempt Resuscitation ASA classification: 2-Mild systemic disease Is this case an emergency?: No
[2023-11-19] MEDS ORDERED: SILVER NITRATE APPLICATOR TOP ONE (13:12)
[2023-11-19] MEDS ORDERED: BUPIVACAINE 0.25% PF 30 ML VIAL ONE (13:12)
[2023-11-19] MEDS ORDERED: PROPOFOL 200 MG/20 ML VIAL IVP ONE (13:33)
[2023-11-19] MEDS ORDERED: LIDOCAINE-PF 2% 10 ML AMP SUBQ ONE (13:33)
[2023-11-19] MEDS ORDERED: fentaNYL 100 MCG/2 ML VIAL ONE (13:33)
[2023-11-19] MEDS ORDERED: MIDAZOLAM 2 MG/2 ML VIAL ONE (13:33)
[2023-11-19] MEDS ORDERED: DEXAMETHASONE 4 MG/ML VIAL ONE (14:11)
[2023-11-19] MEDS ORDERED: ONDANSETRON 4 MG/2 ML VIAL ONE (14:11)
[2023-11-19] MEDS ORDERED: KETOROLAC 30 MG/ML VIAL ONE (14:19)
[2023-11-19] MEDS: BUPIVACAINE 0.25% PF 30 ML VIAL SUBQ ONE ×2 (14:23)
[2023-11-19] MEDS: SILVER NITRATE APPLICATOR TOP ONE (14:23)
[2023-11-19] MEDS ORDERED: HYDROcod/ACETAM 10 MG/325 MG TABLET PO PRN (14:30)
--- NOTE | 2023-11-19 14:45 | OPERATIVE REPORT ---
Operative Report - General Procedure Date: 11/19/23 Planned Procedure: Hysteroscopy and endometrial ablation Pre-Op Diagnosis: Abnormal uterine bleeding Procedure Performed: Hysteroscopy and endometrial ablation Post Op Diagnosis: Abnormal uterine bleeding - Procedure Note Primary Surgeon: Vaughn Delong MD Anesthesia Provider: Andreas Yang CRNA Anesthesia Technique: General LMA Pathology: None IV Fluids (mL): 600 Estimated Blood Loss (mL): 5 Urine Output (mL): 75 Findings: Normal-appearing uterus, bilateral tubal ostia seen. Small polypoid versus leiomyoma in the anterior uterus, not significantly impinging on the uterine architecture. - Other Other Information/Narrative: Patient was placed in dorsal lithotomy position, the patient was prepped and draped in usual manner. Time out was taken. A bivalve speculum was placed in the vagina and the cervix was visualized and then grasped with a single-tooth tenaculum. Uterus was then dilated to 8 cm with a Hegar dilator. At that point a hysteroscopy was performed noting a small fibroid versus polyp in the anterior uterus, but did not distort the uterine architecture significantly. Hyste roscopy showed normal-appearing cervical canal with normal-appearing endometrial lining. Fallopian ostia were visualized. The hysteroscope was then removed. The uterus was then dilated to 8 cm with Hegar dilators. Was then sounded to a length of 9.5 cm and a cervical length of 4.The NovaSure device was then opened and tested. The instrument deployed normally. The instrument was set to the c orrect cavity length was introduced in the uterine cavity. The fan was deployed with gentle movements measuring 4.6 within the cavity. The cone device was then slid down to the cervix and the device was activated. Total burn time was 94 seconds. The NOVA SURE was then retracted and was removed. The fan was examined and revealed charred tissue. Tenaculum was removed cervix examined for hemostasis which was achieved using a sponge stick. The weighted speculum was then removed. The patient tolerated procedure well and was brought to recovery room in good condition. Sponge and instruments were counted and correct. Blood loss was minimal and there were no complications. Patient's contact was notified of patient's wellbeing. Fluid deficit 260 mL.
[2023-11-19] MEDS ORDERED: MORPHINE 2 MG/ML CARPUJECT IVP PRN (15:00)
[2023-11-19] MEDS ORDERED: HYDROmorphone 0.5 MG/0.5 ML SYRINGE IVP PRN (15:00)
[2023-11-19] MEDS ORDERED: LACTATED RINGERS 1,000 ML IV SCH (15:00)
[2023-11-19] MEDS ORDERED: ePHEDrine 50 MG/ML VIAL IVP PRN (15:00)
[2023-11-19] MEDS ORDERED: NALOXONE 0.4 MG/ML VIAL IVP PRN (15:00)
[2023-11-19] MEDS ORDERED: ATROPINE ABBOJECT 1 MG/10 ML SYRINGE IVP PRN (15:00)
[2023-11-19] MEDS ORDERED: ONDANSETRON 4 MG/2 ML VIAL IVP PRN (15:00)
[2023-11-19] MEDS ORDERED: fentaNYL 100 MCG/2 ML VIAL IVP PRN (15:00)
[2023-11-19] MEDS: HYDROcod/ACETAM 5/325 MG TABLET ONE (15:24)
[2023-11-19 15:41] VITALS: BP 148/93; O2SAT 100
--- NOTE | 2023-11-19 15:59 | ANESTHESIA POST OP EVALUATION ---
Anesthesia Post Eval - Post Anesthesia Eval Vitals: Last Vital Signs Temp 36.1 C L 11/19/23 15:07 Pulse 64 11/19/23 15:30 Resp 15 11/19/23 15:30 BP 148/93 H 11/19/23 15:30 Pulse Ox 100 11/19/23 15:30 O2 Flow Rate CV Function Including HR & BP: Stable Pain Control: Satisfactory Nausea & Vomiting: Negative Mental Status: Baseline Respiratory Status: Airway Patent Hydration Status: Satisfactory Anesthesia Complications: None
== END 2023-11-19 10:50 | disposition home or self-care (01) ==
LOC: SDS 10:49
PROVIDERS: ATTEND Obstetrics & Gynecology
DX: N93.9 Abnormal uterine and vaginal bleeding, unspecified (principal); E66.9 Obesity, unspecified; Z68.36 Body mass index [BMI] 36.0-36.9, adult; F17.290 Nicotine dependence, other tobacco product, uncomplicated
CPT/HCPCS: 58563; 81025; A9270; J7120

== ENCOUNTER 2023-12-09 08:57 | Outpatient (CLI) | payer OTHER ==
[2023-12-09 09:08] LABS: BASOPHILS % (AUTO) 0.2 %; EOSINOPHILS # (AUTO) 0.1 10^3/uL (0.0-0.7); EOSINOPHILS % (AUTO) 1.8 %; HCT - HEMATOCRIT 36.2 % (37.0-47.0); HGB - HEMOGLOBIN 10.9 g/dL (12.0-16.0); LYMPHOCYTES # (AUTO) 1.1 10^3/uL (1.5-3.5); LYMPHOCYTES % (AUTO) 18.2 %; MEAN CORPUSCULAR HEMOGLOBIN 26.1 pg (27.0-31.0); MEAN CORPUSCULAR HGB CONC 30.1 g/dL (32.0-36.0); MEAN CORPUSCULAR VOLUME 86.8 fL (81.0-99.0); MEAN PLATELET VOLUME 10.4 fL (7.9-10.8); MONOCYTES # (AUTO) 0.6 10^3/uL (0.0-1.0); MONOCYTES % (AUTO) 9.9 %; NEUTROPHILS # (AUTO) 4.1 10^3/uL (1.5-6.6); NEUTROPHILS % (AUTO) 69.6 %; PLT - PLATELET COUNT 298 10^3/uL (130-450); RED BLOOD COUNT 4.17 10^6/uL (4.20-5.40); RED CELL DISTRIBUTION WIDTH 18.6 % (12.0-15.0)
[2023-12-09 09:49] LABS: THYROID STIMULATING HORMONE 3.7 uIU/mL (0.34-5.60)
[2023-12-09 09:55] LABS: FERRITIN 6.6 ng/mL (11.0-306.8)
== END 2023-12-09 08:58 | disposition home or self-care (01) ==
LOC: LAB 08:57
PROVIDERS: ATTEND Obstetrics & Gynecology
DX: R53.83 Other fatigue (principal); N93.9 Abnormal uterine and vaginal bleeding, unspecified
CPT/HCPCS: 36415; 82728; 84443; 85025

== ENCOUNTER 2023-12-26 12:19 | Emergency (ER) | payer OTHER ==
[2023-12-26] MEDS: lidocaine 1% 20 ML MDV SUBQ ONE (12:31)
--- NOTE | 2023-12-26 12:42 | ED Physician Documentation ---
PD HPI UPPER EXT INJURY - Stated complaint Stated Complaint: R HAND DOG BITE - Chief complaint Chief Complaint: Laceration - History obtained from History obtained from: Patient (Right-handed woman who is up-to-date on tetanus was bitten to the right middle finger while she was breaking up a fight between her fully immunized and healthy dogs at home just prior to arrival.) PD PAST MEDICAL HISTORY - Past Medical History Past Medical History: Yes Cardiovascular: None Respiratory: None Neuro: None Endocrine/Autoimmune: HyPOthyroidism GI: None REALTIME CAPTIONER: None : None HEENT: None Psych: Anxiety, ADD/ADHD Musculoskeletal: None Derm: None - Past Surgical History Past Surgical History: Yes Ortho: Carpal Tunnel surgery /REALTIME CAPTIONER: Breast implants - Present Medications Home Medications: Ambulatory Orders Medication Instructions Recorded Confirmed Levothyroxine Sodium [Synthroid] 75 mcg PO DAILY 10/21/18 11/19/23 Escitalopram Oxalate [Lexapro] 20 mg PO DAILY 06/03/23 11/19/23 Lisdexamfetamine Dimesylate 30 mg PO DAILY 11/12/23 11/19/23 [Vyvanse] oxyCODONE [Roxicodone] 5 mg PO Q4H PRN #8 tablet 11/19/23 Cefuroxime Axetil [Cefuroxime] 500 mg PO BID #10 tablet 12/26/23 - Allergies Allergies/Adverse Reactions: Allergies Allergy/AdvReac Type Severity Reaction Status Date / Time sulfamethoxazole Allergy Intermediate georgina/carmela Verified 12/26/23 12:22 [From Bactrim] syndrome trimethoprim [From Bactrim] Allergy Intermediate Rash Verified 12/26/23 12:22 amoxicillin [Amoxicillin] Allergy Hives Verified 12/26/23 12:22 - Social History Does the pt smoke?: No Smoking Status: Never smoker Does the pt drink ETOH?: Yes Does the pt have substance abuse?: No - Immunizations Immunizations are current?: Yes - POLST Patient has POLST: No PD ED PE NORMAL - Vitals Vital signs reviewed: Yes - General General: Alert and oriented X 3, No acute distress - Extremities Extremities: Other (There is a laceration on the palmar side of the pulp of the right middle finger without distal neurovascular compromise.) - Neuro Neuro: Alert and oriented X 3 Results - Vitals Vitals: Vital Signs - 24 hr 12/26/23 12:22 Temperature 36.5 C Heart Rate 81 Respiratory 16 Rate Blood Pressure 150/88 H O2 Saturation 99 Oxygen O2 Source Room air - Rads (name of study) 3 view right third finger x-ray is normal. Relevant Findings:: Final report received, EMP independent interpretation of test Procedures - Laceration (location) R 3rd finger Length in cm: 1.5 Wound type: Stellate, Into subcut fat Neurovascular status: Sensory intact, Motor intact Anesthesia: Lidocaine 1% Wound preparation: Hibiclens, Irrigated copiously NS Skin layer closure: Nylon, Size #-0 - enter number (4-0), Sutures - enter # (3) Other: Patient tolerated well, No complications, Neurovascular intact, Tetanus UTD Departure - Departure Disposition: 01 Home, Self Care Clinical Impression: Dog bite of finger Qualifiers: Encounter type: initial encounter Qualified Code(s): S61.259A - Open bite of unspecified finger without damage to nail, initial encounter Condition: Good Record reviewed to determine appropriate education?: Yes Instructions: ED Laceration Hand Prescriptions: Cefuroxime Axetil [Cefuroxime] 500 mg PO BID #10 tablet Comments: I sent the prescription for antibiotics electronically to the [facility] [employer] [facility]. Come back for any signs of infection which would include: Redness, swelling, drainage, increased pain, or fevers. You can wash it soap and water. Keep it covered and moist with bacitracin ointment which is available over the counter; avoid neosporin. Follow-up with your physician in ~14 days for suture removal. Forms: PCP List
[2023-12-26] MEDS: cefuroxime axetiL 250 MG TABLET PO STA (12:44)
--- NOTE | 2023-12-26 13:09 | XRAY Report ---
PROCEDURE: Finger(s) RT INDICATIONS: dog bite TECHNIQUE: AP hand, 2 views of the third finger(s) acquired. COMPARISON: None. FINDINGS: Bones: No acute displaced fracture or dislocation. Soft tissues: Soft tissue injury at the third ray. IMPRESSION: No acute osseous abnormality. Presumed third ray soft tissue injury is present. If there is high conc dolores for occult injury, consider repeat radiography or cross-sectional imaging. Reviewed by: Kelton Phillips MD on 12/26/2023 1:08 PM PDT Approved by: Kelton Phillips MD on 12/26/2023 1:08 PM PDT Station ID: [id number]
[2023-12-26 13:32] VITALS: BP 130/88; O2SAT 100
== END 2023-12-26 13:10 | disposition home or self-care (01) ==
LOC: ED 12:19
DX: S61.252A Open bite of right middle finger without damage to nail, initial encounter (principal); W54.0XXA Bitten by dog, initial encounter
CPT/HCPCS: 12001; 73140; 99283; A9270